=== PATIENT | female | born 1980 | race African-American/Black ===

== ENCOUNTER 2022-07-18 17:24 | Emergency (ER) | payer SELFPAY ==
--- NOTE | ~2022-07-18 | XR_ITS ---
EXAMINATION: XR abdomen/kub 1V DATE: 07/18/2022 18:14 INDICATION: 3 months of lower abdominal pain TECHNIQUE: A supine view of the abdomen was obtained. COMPARISON: None. FINDINGS: Moderate amount stool scattered throughout the colon. No dilated loops of gas-filled bowel to suggest obstruction. No suspicious calcifications in the abdomen or pelvis. Pericholecystic clips in right u pper quadrant. Bones are unremarkable. IMPRESSION: 1. Normal bowel gas pattern. Reviewed, dictated and finalized at location A.
[2022-07-18 17:37] VITALS: BP 147/87; PULSE 90; RESP 16; TEMP 36.9; O2SAT 99
[2022-07-18 17:46] VITALS: BP 147/87; PULSE 90; RESP 16; TEMP 36.9; O2SAT 99
--- NOTE | 2022-07-18 17:46 | ED.ABDPAIN ---
HPI - Abdominal Pain General Chief Complaint: Abdominal Pain Stated Complaint: abd pain/back pain Time Seen by Provider: 07/18/22 17:40 Source: patient Mode of arrival: ambulatory Limitations: no limitations History of Present Illness HPI narrative: Ms. Muñoz is a 41-year-old female patient presenting to the clinic today with complaints of lower abdominal pain and back pain. She reports that this is been going on for 3 months. She reports that her last menstrual period was the beginning of last month however it was a lot shorter her spotting instead of having her 5-day heavy normal. She has taken a couple tests and they have been negative but she is concerned that she may be . She has had a history of a tubal ligation. She denies any current vaginal bleeding but has had some discharge. Last sexual intercourse was this morning. Has had some vaginal discharge prior to the sexual encounter this morning. Related Data Allergies Allergy/AdvReac Type Severity Reaction Status Date / Time No Known Allergies Allergy Verified 07/18/22 17:38 Review of Systems Review of Systems: Pertinent positives per HPI. Patient denies any fever, chills, rash, headache, visual changes, dizziness, cough, runny nose, sore throat, shortness of breath, chest pain, palpitations, nausea, vomiting, diarrhea, constipation, or any urinary issues. PMFSH Comments At the time of my signature, I reviewed and agree with the nursing past medical, surgical, social, and family history. There is no relevant family history pertinent to the patient complaint. Exam Narrative: General: Well-developed, overweight, in no apparent distress. Head: Normocephalic, atraumatic. Cardio: Regular rate and rhythm, s1 and s2 normal, no murmur appreciated. Resp: Clear to auscultation bilaterally, no rhonchi, rales, wheezing or rubs. Abdomen: Soft, pliable, bowel sounds present in all quadrants, non-tender to palpation, no organomegly, no CVAT tenderness. Course Course Emergency Course: Portions of this record may have been created with voice recognition software. Level of Care: Express Care Visit Vital Signs Vital signs: Vital Signs Temperature 36.9 C 07/18/22 17:37 Pulse Rate 90 07/18/22 17:37 Respiratory Rate 16 07/18/22 17:37 Blood Pressure 147/87 H 07/18/22 17:37 Pulse Oximetry 99 07/18/22 17:37 Oxygen Delivery Room Air 07/18/22 17:37 Temperature 36.9 C 07/18/22 17:46 Pulse Rate 90 07/18/22 17:46 Respiratory Rate 16 07/18/22 17:46 Blood Pressure 147/87 H 07/18/22 17:46 Pulse Oximetry 99 07/18/22 17:46 Oxygen Delivery Room Air 07/18/22 17:46 Vital signs reviewed MDM - Abdominal Pain MDM Narrative Medical decision making narrative: At the time of visit patient is resting comfortably on the exam table. Urinalysis and test was completed in the clinic and both were negative for any sign of infection or blood. test is negative. X-ray of abdomen was completed and this does not show any signs of constipation. Pelvic exam performed and swabs were obtained for bacterial vaginosis, trichomonas, chlamydia, and gonorrhea. Differential Diagnosis Differential diagnosis: Likely abdominal pain, constipation, gastroenteritis and other (Chlamydia, gonorrhea, trichomonas, bacterial vaginosis, , urinary tract infection) Lab Data Labs: Urine Glucose Negative Reference Range: Negative Urine Bilirubin Negative Reference Range: Negative Urine Ketone Negative Reference Range: Negative Urine Specific [place] 1.030 Reference Range:1.001-1.035 Urine Blood Negative
--- NOTE | 2022-07-18 18:40 | PC.NURSE ---
pelvic exam done by [employer] and crm with rn at bedside. 2 swabs obtained. one for bv and one for gc/chlam and trich.
== END 2022-07-18 18:50 | disposition home or self-care (01) ==
PROVIDERS: Emergency Provider Nurse Practitioner Family
DX: R10.30 Lower abdominal pain, unspecified (principal); M54.50 Low back pain, unspecified; N89.8 Other specified noninflammatory disorders of vagina
CPT/HCPCS: 74018; 81003; 81025; 87070; 87086; 87088; 87491; 87591; 87661; 99204; G0463

== ENCOUNTER 2023-01-12 08:41 | Emergency (ER) | payer SELFPAY ==
--- NOTE | 2023-01-12 08:46 | ED.EYEPROB ---
HPI - Eye Problem General Chief complaint: Eye Problems Stated complaint: right eye pain Time Seen by Provider: 01/12/23 09:10 Source: patient Mode of arrival: ambulatory Limitations: no limitations History of Present Illness HPI Narrative: 42-year-old female presents concern for right eye pain. Reports last night while she was intoxicated she fell on the grass and feel like she got something in her eye. Reports she was scratching at last night. She reports she woke up at 3:00 a.m. with eye pain. She denies any intervention. She feels like there is something in her eye chief complaint: eye pain Related Data Allergies Allergy/AdvReac Type Severity Reaction Status Date / Time No Known Allergies Allergy Verified 01/12/23 08:49 Review of Systems Review of Systems: CONSTITUTIONAL: Denies malaise, chills, sweats, or fever. EYES: Denies visual changes. Reports right eye pain ENT: Denies rhinorrhea, congestion, sinus pain, otalgia or sore throat. SKIN: Denies rash or itching. NEUROLOGIC: Denies numbness, weakness, or headache. PSYCHIATRIC: Denies anxiety or depression. All systems reviewed & are unremarkable except as noted in HPI and below PMFSH Comments At time of signature, agree with nursing past medical, surgical, social and family history. There is no relevant family history pertinent to the presenting complaint Exam Narrative: GENERAL: Well-appearing, well-nourished, and in no acute distress. HEAD: Normocephalic, atraumatic. EYES: PERRLA, left conjunctivae and sclera clear, and EOMI. No nystagmus. Right sclera injected with corneal abrasion noted upon Wood's lamp exam, see note. No foreign bodies noted. Upper and lower eyelid unremarkable, no periorbital edema noted ENT: Nares clear, turbinates pink, no rhinorrhea or epistaxis. Mucous membranes moist. TM pearly oden with sharp light reflex bilaterally; no tragal tenderness. NECK: Supple. CHEST: No respiratory distress. Speaks in full sentences. HEART: Regular rate and rhythm. SKIN: Warm, dry, no visible rash. NEURO: Alert and oriented x3. PSYCH: Normal mood and affect Course Course Emergency Course: Patient is aware of diagnosis, understands and agrees to treatment plan. Anticipatory guidance given. Patient agrees to follow-up as directed and is aware of reasons to seek care at the emergency department. Portions of this record may have been created with voice recognition software Level of Care: Express Care Visit Vital Signs Vital signs: Reviewed. Procedures Other Procedure Procedure 1: Other Procedure: Tetracaine 1 gtt instilled in right eye, fluorescein stain applied. Corneal abrasion noted upon reed lamp exam on top of the pupil. Eye washed with NS 100 ml. No foreign bodies or Jason sign noted. MDM - Eye Problem MDM Narrative Medical decision making narrative: Consideration of the following conditions may be warranted for the presenting problem, they are not final diagnoses: Bacterial conjunctivitis, allergic conjunctivitis, viral conjunctivitis, foreign body, blepharitis, chalazion, hordeolum, corneal abrasion, preseptal cellulitis, orbital cellulitis. No evidence of proptosis, ophthalmoplegia, vision loss, pain with eye movement. Exam findings show no acute concerns or changes; patient is non-toxic appearing and is in no distress. Patient is appropriate for outpatient treatment and follow-up. Critical Care Time Critical Care Time Critical Care Time: No Discharge Plan Discharge Clinical Impression: Corneal abrasion Patient Disposition: Home, Self-Care Condition: Stable Instructions: Corneal Abrasion (ED) Additional Instructions: Corneal abrasions will heal in 1-2 days. Keep your eye shut and wear sunglasses or stay in low light to avoid light sensitivity. Do not touch or rub your eye or use a fabric patch You may alternate Tylenol or ibuprofen for pain Follow-up with PCP or borough coordinator if condition is not
[2023-01-12 08:48] VITALS: BP 129/84; PULSE 76; RESP 16; TEMP 36.6; O2SAT 99
== END 2023-01-12 09:34 | disposition home or self-care (01) ==
PROVIDERS: Emergency Provider Nurse Practitioner
DX: S05.01XA Injury of conjunctiva and corneal abrasion without foreign body, right eye, initial encounter (principal); W19.XXXA Unspecified fall, initial encounter
CPT/HCPCS: 99213; A9270; G0463